=== PATIENT | female | born 1925 | race Caucasian/White ===

== ENCOUNTER → 2016-12-07 | Outpatient (CLI) | payer OTHER, MEDICAID ==
[2016-11-20 11:41] VITALS: BP 159/72
--- NOTE | 2016-12-07 10:57 | RAD ---
Chest, two views Indication: Shortness of breath Comparison: 11/19/2016 Findings: There is stable mild cardiomegaly with chronic interstitial changes of the lungs. There is no evidence for overt edema, focal infiltrate, or pleural effusion. Impression: Stable cardiomegaly without evidence for CHF or other acute chest process. Reported By:
== END ==
LOC: RAD 10:14
PROVIDERS: ATTEND Internal Medicine
DX: R09.02 Hypoxemia (principal); R06.02 Shortness of breath; R09.3 Abnormal sputum
CPT/HCPCS: 71020

== ENCOUNTER → 2017-01-23 | Outpatient (CLI) | payer OTHER, MEDICAID ==
[2016-11-20 11:41] VITALS: BP 159/72
== END ==
LOC: LTCLAB 19:16
PROVIDERS: ATTEND Internal Medicine
DX: R73.09 Other abnormal glucose (principal)
CPT/HCPCS: 36415; 82947

== ENCOUNTER → 2017-01-30 | Outpatient (CLI) | payer OTHER, MEDICAID ==
[2016-11-20 11:41] VITALS: BP 159/72
== END ==
LOC: LTCLAB 16:52
PROVIDERS: ATTEND Internal Medicine
DX: E11.9 Type 2 diabetes mellitus without complications (principal)
CPT/HCPCS: 36415; 82947

== ENCOUNTER → 2017-02-03 | Outpatient (CLI) | payer OTHER, MEDICAID ==
[2016-11-20 11:41] VITALS: BP 159/72
--- NOTE | 2017-02-03 14:53 | VAS ---
HISTORY: Bilateral lower extremity edema Study: Bilateral lower extremity venous Doppler Comparison: None TECHNIQUE: Multiple bridges scale and color flow Doppler images of the deep venous system were obtaine d of the right and left lower extremity. FINDINGS: The deep venous system of the right and left lower extremities were evaluated from the level of the common femoral vein through the popliteal vein. Normal color flow and augmentation can be observed. In addition, normal compression is seen throughout the deep venous system. IMPRESSION: 1. Negative for DVT. Reported By:
== END ==
LOC: RAD 08:26
PROVIDERS: ATTEND Internal Medicine
DX: R09.89 Other specified symptoms and signs involving the circulatory and respiratory systems (principal); R60.0 Localized edema
CPT/HCPCS: 93970

== ENCOUNTER → 2017-02-05 | Outpatient (CLI) | payer OTHER, MEDICAID ==
[2016-11-20 11:41] VITALS: BP 159/72
== END ==
LOC: LTCLAB 21:26
PROVIDERS: ATTEND Internal Medicine
DX: R73.09 Other abnormal glucose (principal)
CPT/HCPCS: 36415; 82947

== ENCOUNTER → 2017-02-06 | Outpatient (CLI) | payer OTHER, MEDICAID ==
[2016-11-20 11:41] VITALS: BP 159/72
== END ==
LOC: LTCLAB 17:41
PROVIDERS: ATTEND Internal Medicine
DX: E11.65 Type 2 diabetes mellitus with hyperglycemia (principal)
CPT/HCPCS: 36415; 82947